=== PATIENT | male | born 1965 | race Caucasian/White ===

== ENCOUNTER → 2025-09-02 | Outpatient (REF) | payer OTHER ==
[~2025-09-02] MED LIST: ACET-683 PO; AMLO1TAB25 PO; CREATINE PO; FINA5TAB2 PO; NITR100C2 PO; TADA5TAB2 PO
== END ==
LOC: M LAB REF 11:47
PROVIDERS: ATTEND Nurse Practitioner Family
DX: R30.0 Dysuria (principal); M54.50 Low back pain, unspecified